=== PATIENT | female | born 1950 | race Caucasian/White ===

== ENCOUNTER 2018-12-01 16:41 | Emergency (ER) | payer OTHER ==
[~2018-12-01] VITALS: Ht 172.7 cm; Wt 64.9 kg
[~2018-12-01 16:41] MED LIST: AMLODIPINE; CLONAZEPAM; IBUPROFEN 800800 M1; NORCO 5-325 TA1 EACH PO; ULTRAM 50MG TAB50 MG
[2018-12-01] MEDS ORDERED: CLONAZEPAM 1 MG1 M1 PO (18:24)
[2018-12-01 18:38] VITALS: BP 189/79
== END 2018-12-01 18:39 | disposition home or self-care (01) ==
LOC: ER 16:41
DX: F13.20 Sedative, hypnotic or anxiolytic dependence, uncomplicated (principal); M54.9 Dorsalgia, unspecified; G89.29 Other chronic pain; F41.9 Anxiety disorder, unspecified; F32.9 Major depressive disorder, single episode, unspecified; I10 Essential (primary) hypertension; Z88.5 Allergy status to narcotic agent; Z88.8 Allergy status to other drugs, medicaments and biological substances; Z90.710 Acquired absence of both cervix and uterus

== ENCOUNTER 2021-05-25 10:57 | Emergency (ER) | payer OTHER ==
[~2021-05-25] VITALS: Ht 172.7 cm; Wt 63.5 kg
--- NOTE | ~2021-05-25 | EMS ---
[address] [address] EMS Patient Care Report Name: SARAH BETH NOWAK Room #: DEP [facility]#: [id number] Admission: 05/25/21 Attend Phys: Discharge: 05/25/21 Date of : 52 Report #: [id number] THIS REPORT FOR: //name// Report Transmitted: 05/27/2021 12:30 EMS Care Summary [place], [place]/[facility] Incident [id number] @ 05/25/2021 10:03 Incident Location [address] [place] [id number] Patient SARAH BETH NOWAK Female, 71 Years 1950 Patient Address [address] [place] [address] DR DislaBell Arthur, 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 PATIENT IS AWAKE AND TALKING, BUT VERY DESPONDENT, SLOW TO ANSWERE AND HAS A RANDOM THOUGHT PROCESS. PATIENT DOES STATE THAT SHE DOES NOT FEEL GOOD TODAY AND KNOWS THAT SHE IS ACTING DIFFERENTLY. PATIENT WAS APPREHENSIVE ABOUT GOING TO THE ER TO GET CHECKED OUT AT 1ST BUT THEN AGREED. PATIENT PLACED [address] [address] EMS Patient Care Report Name: SARAH BETH NOWAK Room #: DEP [facility]..#: [id number] Admission: 05/25/21 Attend Phys: Discharge: 05/25/21 Date of : 52 Report #: [id number] ON THE COT COT, V.S. ESTABLISHED IN THE UNIT, BLOOD SUGAR CHECKED AND PATIENT TRANSPORTED TO THE ER, 0 CHANGES ENROUTE. Initial Vitals @10:45P: 75,CO: 1,SpO2: 99, @10:34P: 76,R: 16,BP: 179/103,Pain: 0/10,GCS: 10,Glucose: 113,Revised Trauma: 11, Assessments @10:18MENTAL:Place Oriented,Time Oriented,Person Oriented,Event Oriented,Confused,SKIN:No Abnormalities,HEENT:Head/Face: No Abnormalities,Eyes: No Abnormalities,Neck/Airway: No Abnormalities,LUNG SOUNDS:General: No Abnormalities,Left Upper: No Abnormalities,Right Upper: No Abnormalities,Left Lower: No Abnormalities,Right Lower: No Abnormalities,ABDOMEN:General: No Abnormalities,Left Upper: No Abnormalities,Right Upper: No Abnormalities,Left Lower: No Abnormalities,Right Lower: No Abnormalities,PELVIS//GI:No Abnormalities,EXTREMITIES:Left Arm: No Abnormalities,Right Arm: No Abnormalities,Left Leg: No Abnormalities,Right Leg: No Abnormalities,PULSE:NEURO:No Abnormalities, Impression Behavioral/psychiatric episode Procedures @10:18ALS AssessmentResponse: UnchangedSucceeded Timeline 10:01,Call Received 10:01,Dispatch Notified 10:03,Dispatched 10:06,En Route 10:17,On Scene 10:18,At Patient 10:18,ALS Assessment,Response: UnchangedSucceeded, 10:34,BP: 179/103 M,PULSE: 76,RR: 16 R,SPO2: Ox,ETCO2: ,B,PAIN: 0,GCS: 10, 10:40,Depart Scene 10:45,BP: / M,PULSE: 75,RR: R,SPO2: 99 Ox,ETCO2: ,BG: ,PAIN: ,GCS: , 11:07,At Destination 11:22,Call Closed Disclaimer v1.1 Copyright 2020 [employer] This EMS Care Summary contains data elements from the applicable legal record (which may be displayed differently). It is designed to provide pertinent information for the following purposes: continuity of care, clinical quality, [address] [address] EMS Patient Care Report Name: SARAH BETH NOWAK AVELINA Room #: DEP APOLLO Miramontes#: [id number] Admission: 05/25/21 Attend Phys: Discharge: 05/25/21 Date of : 52 Report #: [id number] and state data reporting. The complete legal record is available to ED staff and administrators of the receiving hospital in [employer]'s Patient Tracker. All data is provided "as is."
[~2021-05-25 10:57] MED LIST changes: +CLONAZEPAM 1 MG1 M1 PO
[2021-05-25 11:21] LABS: BASOPHILS 0.7 % (0.0-2.0); EOSINOPHILS 1.1 % (0.0-3.0); HEMATOCRIT 41.5 % (37.0-47.0); HEMOGLOBIN 13.3 gm/dL (12.0-15.0); LYMPHOCYTES 13.4 % (24.0-44.0); MCH 29.3 pg (26.0-34.0); MCHC 32.1 g/dL (28.0-37.0); MCV 91.2 fL (80.0-100.0); MONOCYTES 7.8 % (1.0-8.0); PLATELET COUNT 267 thou/uL (150-400); RBC 4.55 mil/uL (4.20-5.00); RDW 13.6 % (10.5-14.5); WBC 7.8 thou/uL (4.0-11.0)
--- NOTE | 2021-05-25 11:27 | EKG ---
[place] [address] [facility] [employer] [place] [address] ELECTROCARDIOGRAM REPORT Name: SARAH BETH NOWAK Room #: PRE [facility].#: [id number] Admission: Attend Phys: Discharge: Date of : 52 Report #: [id number] [facility] ED Test Date: 2021-05-25 Test Time: 11:04:29 Pat Name: SARAH BETH NOWAK Department: Room: Gender: F Manager General: : 1950 Requested By: Wallace Beyer Order Number: [id number] MD: Abrahan Ibanez Measurements Intervals [place] Rate: 67 P: 50 W[place]: 173 QRS: -3 QRSD: 94 T: -22 QT: 406 QTc: 429 Interpretive Statements Sinus rhythm Ventricular premature complex Left ventricular hypertrophy Nonspecific T abnormalities, inferior leads Compared to ECG 01/11/1995 11:22:00 Ventricular premature complex(es) now present Left ventricular hypertrophy now present T-wave abnormality now present Sinus bradycardia no longer present ST (T wave) deviation no longer present Electronically Signed On 05-25-2021 11:27:42 CDT by Abrahan Ibanez [email or web address] <ELECTRONICALLY SIGNED> By: Abrahan Ibanez MD, FAC 05/25/21 1127 [id number] [id number] Abrahan Ibanez MD, [facility] /EPI
[2021-05-25 11:39] LABS: APTT 28.2 Seconds (24.5-32.8); CALCIUM 8.9 mg/dL (8.5-10.1); INR 1.04; PROTIME 11.3 Seconds (10.5-12.1)
[2021-05-25 13:04] LABS: URINE BILIRUBIN NEGATIVE (Negative); URINE BLOOD TRACE (Negative); URINE CLARITY CLEAR; URINE COLOR YELLOW; URINE GLUCOSE-RANDOM* NEGATIVE (Negative); URINE KETONES NEGATIVE (Negative); URINE LEUKOCYTES-REFLEX TRACE (Negative); URINE NITRITE-REFLEX NEGATIVE (Negative); URINE PROTEIN (DIPSTICK) NEGATIVE (Negative); URINE SPECIFIC GRAVITY <= 1.005 (1.005-1.035); URINE UROBILINOGEN 0.2 E.U./dl (0.2-1.0)
[2021-05-25 13:14] LABS: AMP/METHAMP Negative (Negative); BARBITURATES Negative (Negative); BENZODIAZEPINES Negative (Negative); COCAINE Negative (Negative); METHADONE Negative (Negative); OPIATES Negative (Negative); PCP Negative (Negative)
[2021-05-25 17:35] VITALS: BP 168/88
== END 2021-05-25 17:35 | disposition left against medical advice (07) ==
LOC: ER 10:57
PROVIDERS: Emergency Medicine
DX: I10 Essential (primary) hypertension (principal); R41.0 Disorientation, unspecified; G47.00 Insomnia, unspecified; F32.9 Major depressive disorder, single episode, unspecified; F44.89 Other dissociative and conversion disorders; F41.9 Anxiety disorder, unspecified; Z90.710 Acquired absence of both cervix and uterus; Z88.5 Allergy status to narcotic agent